=== PATIENT | female | born 1995 ===

== ENCOUNTER 2021-12-05 20:15 | Inpatient (IN) | payer BC ==
[2021-12-05] MEDS ORDERED: Water For Irrigation,Sterile 1,000 ML Container IRR PRN (20:44)
[2021-12-05] MEDS ORDERED: Ondansetron 4 MG/2 ML SDV IVPUSH PRN (20:44)
[2021-12-05] MEDS ORDERED: Methylergonovine 0.2 MG/1 ML Amp IM PRN (20:44)
[2021-12-05] MEDS ORDERED: Sodium Chloride 0.9% 10 ML Syringe FLUSH PRN (20:44)
[2021-12-05] MEDS ORDERED: Tranexamic Acid 1,000 MG in Sodium Chloride 0.9% 100 ML IV PRN (20:44)
[2021-12-05] MEDS ORDERED: Sodium Chloride 0.9% 20 ML SDV IV PRN (20:44)
[2021-12-05] MEDS ORDERED: Carboprost Tromethamine 250 MCG/1 ML Amp IM PRN (20:44)
[2021-12-05] MEDS ORDERED: Sodium Chloride 0.9% 2.5 ML Syringe FLUSH PRN (20:44)
[2021-12-05] MEDS ORDERED: Butorphanol 1 MG/ML SDV IVPUSH PRN (20:44)
[2021-12-05] MEDS ORDERED: Terbutaline 1 MG/ML SDV SUBCUT PRN (20:44)
[2021-12-05] MEDS ORDERED: Lidocaine 1% 50 ML MDV INJECT PRN (20:44)
[2021-12-05] MEDS ORDERED: Misoprostol 200 MCG Tab PO PRN (20:44)
[2021-12-05] MEDS ORDERED: Oxytocin/0.9 % Sodium Chloride 30 UNIT/500 ML BAG IV SCH ×2 (20:45)
[2021-12-05] MEDS ORDERED: Misoprostol 25 MCG (1/4 of 100 MCG) Tab VAG PRN (21:00)
[2021-12-06] MEDS ORDERED: Misoprostol 25 MCG (1/4 of 100 MCG) Tab VAG PRN (01:00)
[2021-12-06] MEDS: Lactated Ringers 1,000 ML IV SCH ×2 (03:31→05:34)
[2021-12-06] MEDS ORDERED: ePHEDrine 50 MG/ML SDV IVPUSH PRN (05:34)
[2021-12-06] MEDS ORDERED: Ropivacaine HCl/PF 400 MG in Premix Bag 1 BAG EPIDUR SCH (05:45)
[2021-12-06] MEDS ORDERED: Lanolin 100% Cream 7 GM Tube TOP PRN (12:53)
[2021-12-06] MEDS ORDERED: Ibuprofen 400 MG Tab PO PRN (12:53)
[2021-12-06] MEDS ORDERED: Witch Hazel Medicated Pads 40/Jar TOP PRN (12:53)
[2021-12-06] MEDS ORDERED: Acetaminophen 500 MG Tab PO PRN (12:53)
[2021-12-06] MEDS ORDERED: Benzocaine/Menthol 20%-0.5% Spray 78 GM Cannister TOP PRN (12:53)
[2021-12-06] MEDS ORDERED: Bisacodyl 10 MG Supp RECTAL PRN (12:53)
[2021-12-06] MEDS ORDERED: oxyCODONE 5 MG Tab PO PRN (12:53)
[2021-12-06] MEDS: Acetaminophen 500 MG Tab PO PRN (15:39)
[2021-12-06] MEDS: Ibuprofen 800 MG Tab PO PRN (15:39)
[2021-12-06] MEDS ORDERED: Sertraline 50 MG Tab PO SCH (21:00)
[2021-12-07] MEDS: Acetaminophen 500 MG Tab PO PRN (07:29)
[2021-12-07] MEDS: Docusate Sodium 100 MG Cap PO PRN (10:22)
[2021-12-07] MEDS: Ibuprofen 800 MG Tab PO PRN (15:55)
[2021-12-08] MEDS: Ibuprofen 800 MG Tab PO PRN (06:20)
[2021-12-08] MEDS: Docusate Sodium 100 MG Cap PO PRN (06:20)
== END 2021-12-08 16:49 | disposition home or self-care (01) | DRG 560 ==
LOC: MW.OB 20:15 → MW.OBCHECK 20:15 → MW.OB 20:44 → OBSVTOIN 12-06 11:21 → MW.OB 12-06 15:56
PROVIDERS: ADMIT Obstetrics & Gynecology; ATTEND Obstetrics & Gynecology
PROC: 10E0XZZ Delivery of Products of Conception, External Approach (ICD-10-PCS; principal; 2021-12-06)
PROC: 10907ZC Drainage of Amniotic Fluid, Therapeutic from Products of Conception, Via Natural or Artificial Opening (ICD-10-PCS; 2021-12-06)
PROC: 0KQM0ZZ Repair Perineum Muscle, Open Approach (ICD-10-PCS; 2021-12-06)
PROC: 3E0R3BZ Introduction of Anesthetic Agent into Spinal Canal, Percutaneous Approach (ICD-10-PCS; 2021-12-06)
PROC: 00HU33Z Insertion of Infusion Device into Spinal Canal, Percutaneous Approach (ICD-10-PCS; 2021-12-06)
DX: O48.0 Post-term pregnancy (principal); O69.81X0 Labor and delivery complicated by cord around neck, without compression, not applicable or unspecified; Z3A.40 40 weeks gestation of pregnancy; Z37.0 Single live birth; O77.0 Labor and delivery complicated by meconium in amniotic fluid; O70.1 Second degree perineal laceration during delivery; O76 Abnormality in fetal heart rate and rhythm complicating labor and delivery; Z20.822 Contact with and (suspected) exposure to COVID-19
CPT/HCPCS: 01967; 36415; 51702; 59025; 59409; 82803; 85014; 85018; 85027; 86592; 86850; 86900; 86901; A9270-GY; J0595; J2405; J2590; J2795; J7120; U0002